=== PATIENT | female | born 1980 | race American Indian/Alaskan Native ===

== ENCOUNTER 2020-04-22 14:45 | Outpatient (CLI) | payer BC ==
--- NOTE | 2020-04-22 15:15 | Ultrasound Report ---
LEFT BREAST ULTRASOUND INDICATION: Evaluate left breast 1:00 palpable finding. COMPARISON: 04/10/2020. FINDINGS: A targeted ultrasound focused in the left breast at the 1:00 position, 8 cm from the nipple , was performed to evaluate the site of a reported palpable finding. There is a 1.9 x 1 x 1.5 cm edgard gn-appearing simple cyst noted at this site. Also incidentally noted is a separate smaller benign-jonathan earing cyst located at the 1:00 position, 5 cm from the nipple. IMPRESSION: Palpable finding in the left breast at the 1:00 position, 8 cm from the nipple, corresponds with a be nign-appearing simple cyst. No evidence of malignancy. A routine screening mammogram in one year is r ecommended. BI-RADS Category 2: Benign. Recommend routine screening mammography in one year A "normal" or negative report should not discourage follow up or biopsy of a clinically significant f inding. A written summary of these findings will be mailed to the patient. FURTHER INFORMATION: According to the [employer], yearly mammograms are recommend ed starting at age 40 and continuing as long as a woman is in good health. Breast MRI is recommended for women with an approximately 20-25% or greater lifetime risk of breast cancer, including women wi th a strong family history of breast or ovarian cancer and women who have been treated for Hodgkin's disease. Signer Name: Nakul Charlton MD Signed: 04/22/2020 3:11 PM Workstation Name: [id number]
== END 2020-04-22 14:46 | disposition home or self-care (01) ==
LOC: SPVWC 14:45
PROVIDERS: ATTEND Obstetrics & Gynecology
DX: R92.8 Other abnormal and inconclusive findings on diagnostic imaging of breast (principal); N63.0 Unspecified lump in unspecified breast